=== PATIENT | female | born 1975 | race Caucasian/White ===

== ENCOUNTER 2017-03-05 21:04 | Emergency (ER) | payer BC ==
--- NOTE | 2017-03-05 21:14 | EDM.PDOC ---
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 She is 16 weeks , . Patient states that she did have some spotting early in , but things have been going well as of late. The spotting started again this morning, has worsened this evening and now she has passed several clots. Mild suprapubic pain, patient declines pain medication. Patient is Rh+. Bilateral Lower Back Pain Score (Numeric/FACES): 5 - Related Data Allergies Allergy/AdvReac Type Severity Reaction Status Date / Time No Known Allergies Allergy Verified 03/05/17 21:26 Home Meds: Home Meds . [No Known Home Meds] 03/05/17 [History] ED ROS GENERAL - Review of Systems Review Of Systems: See Below Constitutional: Reports: No Symptoms Respiratory: Reports: No Symptoms Cardiovascular: Reports: No Symptoms GI/Abdominal: Reports: Abdominal Pain : Reports: Other (vaginal bleeding). Denies: Discharge, Dysuria ED EXAM - Physical Exam Exam: See Below Exam Limited By: No Limitations General Appearance: Alert, WD/WN, No Apparent Distress Respiratory/Chest: No Respiratory Distress, Lungs Clear, Chest Non-Tender Cardiovascular: Regular Rate, Rhythm, No Murmur GI/Abdominal Exam: Normal Bowel Sounds, Soft (Female) Exam: Normal External Exam, Vaginal Bleeding (Small amount of blood in the vaginal vault. ) Heart Tones: Present Heart Tones per Min: 159 Neurological: Alert, Oriented Psychiatric: Normal Affect, Normal Mood Skin Exam: Warm, Dry, Intact Course - Vital Signs Last Recorded V/S: Last Vital Signs Temp 97.3 F 03/05/17 21:09 Pulse 83 03/05/17 21:09 Resp 16 03/05/17 21:09 BP 142/70 H 03/05/17 21:09 Pulse Ox 98 03/05/17 21:09 - Orders/Labs/Meds Orders: Active Orders 24 hr Category Date Time Status OB Ltd 1 or More Fetus [US] Stat Exams 03/05/17 21:27 Taken Labs: Laboratory Tests 03/05/17 03/05/17 Range/Units 21:47 21:47 WBC 11.81 H (3.98-10.04) K/mm3 RBC 4.24 (3.98-5.22) M/mm3 Hgb 12.6 (11.2-15.7) gm/L Hct 37.2 (34.1-44.9) % MCV 87.7 (79.4-94.8) fl MCH 29.7 (25.6-32.2) pg MCHC 33.9 (32.2-35.5) g/dl RDW Std Deviation 43.1 (36.4-46.3) fL Plt Count 300 (182-369) K/mm3 MPV 9.5 (9.4-12.3) fl Neutrophils % (Manual) 71 H (40-60) % Band Neutrophils % 0 (0-10) % Lymphocytes % (Manual) 21 (20-40) % Atypical Lymphs % 0 % Monocytes % (Manual) 7 (2-10) % Eosinophils % (Manual) 1 (0.7-5.8) % Basophils % (Manual) 0 L (0.1-1.2) Platelet Estimate Adequate RBC Morph Comment Normal HCG, Quant 77279.0 mIU/mL - Re-Assessments/Exams Free Text/Narrative Re-Assessment/Exam: Vaginal bleeding at 16wks gestation, very small amount of blood in the vaginal vault and cervix is closed. Patient Rh+. Will get US to evaluate further. Patient declines pain medication. 03/05/17 21:39 Hcg quant has come down some, patient is 16wks gestation. US demonatrates: 1. Single intrauterine gestation with normal motion in transverse position 2. Normal heart rate with 152 bpm 3. Marginal placenta previa 4. Small area of subchorionic hemorrhage 5. Estimated gestational age based on ultrasound 16 weeks 5 days. 6. Estimated date of delivery based on ultrasound 08/15/2017 With the subchorionic hemorrhage, recommend patient have bed rest and take it very easy the next few days. She has a follow-up scheduled with her OB on and needs to keep this. Advised patient that if pain should worsen or bleeding should become significant than she should return to the emergency room and patient verbalized understanding of this. 03/05/17 23:09 Departure - Departure Time of Disposition: 23:06 Disposition: Home, Self-Care 01 Condition: Fair Clinical Impression: Subchorionic hemorrhage in second trimester Qualifiers: Fetus number: single or unspecified fetus Qualified Code(s): O41.8X20 - Other specified disorders of amniotic fluid and membranes, second trimester, not applicable or unspecified; O46.8X2 - Other antepartum hemorrhage, second trimester; O46.8X2 - Other antepartum hemorrhage, second trimester - Discharge Information Referrals: Axel Holden MD [Primary Care Provider] - Forms: ED Department Discharge Additional Instructions: You were diagnosed with a small subchorionic hemorrhage. You will be discharged home, you need to rest. No lifting and take it very easy physically. Keep your appointment with Dr Holden . If your bleeding should worsen to more that 1 pad/hour for 2 hours or you have increased pain you may certainly return to ER as well. - My Orders Last 24 Hours: My Active Orders 03/05/17 21:27 OB Ltd 1 or More Fetus [US] Stat - Assessment/Plan Last 24 Hours: My Active Orders 03/05/17 21:27 OB Ltd 1 or More Fetus [US] Stat
--- NOTE | 2017-03-06 07:08 | US ---
Limited obstetrical ultrasound: Multiple real-time images were obtained. Comparison: Prior study of 01/01/17. Dates: LMP: LMP given as 11/17/16, DEVIN 08/24/17, gestational age 15 weeks 3 days Current ultrasound: DEVIN 08/15/17, gestational age 16 weeks 5 days Earliest ultrasound (01/01/17): DEVIN 08/19/17, gestational age 16 weeks 1 day presentation: Transverse Placenta: Posterior with partial placenta previa with minimal hypoechoic area seen beneath the inferior edge of the placenta suggesting minimal abruption. Amniotic fluid: TYLER 9.71 cm Measurements: BPD: 3.48 cm - 16 weeks 6 days Head circumference: 12.73 cm - 16 weeks 4 days Abdominal circumference: 11.38 cm - 17 weeks 2 days Femur length: 2.05 cm - 16 weeks 1 day Estimated weight: 164 g (0 lbs. 6 oz.), estimated weight at the 38th percentile for age by current ultrasound Heart rate: 152 bpm Cervical length: 4.8 cm Impression: 1. Single intrauterine fetus currently transverse lie. Dates as noted above. 2. Partial placenta previa with small abruption off the inferior edge of the placenta. 3. Normal heart activity is seen. Diagnostic code #3 Agree with preliminary report issued by [employer] ([employer] preliminary report dictated on 03/06/17, 12:01 AM Central Time)
== END 2017-03-05 23:20 | disposition home or self-care (01) ==
LOC: JD.ED 21:04
DX: O41.8X20 Other specified disorders of amniotic fluid and membranes, second trimester, not applicable or unspecified (principal); O46.8X2 Other antepartum hemorrhage, second trimester; Z3A.16 16 weeks gestation of pregnancy
CPT/HCPCS: 36415; 76815; 76815-26; 84702; 85025; 99284; 99284-25

== ENCOUNTER 2017-07-22 21:38 | Emergency (ER) | payer BC ==
--- NOTE | 2017-07-22 22:22 | EDM.PDOC ---
ED HPI GENERAL MEDICAL PROBLEM - General Chief Complaint: Head Injury Stated Complaint: HEAD INJURY/FALL Time Seen by Provider: 07/22/17 21:57 Source of Information: Reports: Patient History Limitations: Reports: No Limitations - History of Present Illness INITIAL COMMENTS - FREE TEXT/NARRATIVE: The patient is a 42-year-old female, 36 weeks , who presents with a fall and possible head injury. She states that she was walking down a flight of stairs and she's not certain why she fell. She did not pass out. says that she fell down about 3 stairs. She did hit her head. There is no loss of consciousness. She was evaluated by OB, baby seems fine, and was sent here for further evaluation. She states that she has a mild headache. No vision changes. No neck pain. No chest pain or shortness of breath. No abdominal pain. Denies extremity injury. States that her headache is not very bothersome. Hasn't taken anything for pain. No vomiting. No confusion. 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 , 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, - Past Surgical History HEENT Surgical History: Reports: Tonsillectomy Social & Family History - Family History Family Medical History: Noncontributory - Tobacco Use Smoking Status *Q: Never Smoker - Caffeine Use Caffeine Use: Reports: None - Recreational Drug Use Recreational Drug Use: No ED ROS GENERAL - Review of Systems Review Of Systems: See Below Constitutional: Denies: Fever HEENT: Reports: No Symptoms Respiratory: Denies: Shortness of Breath Cardiovascular: Denies: Chest Pain Endocrine: Reports: No Symptoms GI/Abdominal: Denies: Abdominal Pain : Reports: No Symptoms Musculoskeletal: Reports: No Symptoms Skin: Reports: No Symptoms Neurological: Reports: Headache Psychiatric: Reports: No Symptoms Hematologic/Lymphatic: Reports: No Symptoms Immunologic: Reports: No Symptoms ED EXAM, HEAD INJURY - Physical Exam Exam: See Below Exam Limited By: No Limitations General Appearance: Alert, WD/WN, No Apparent Distress Head: Atraumatic, Normocephalic Nexus Criteria: No: Posterior, Midline Cervical Tenderness, Evidence of Intoxication, Altered Level of Consciousness, Focal Neurological Deficit, Painful Distraction Injuries Eyes: Bilateral Eye: EOMI, Normal Inspection, PERRL Ears: Normal External Exam Nose: Normal Inspection, Normal Mucousa, No Blood Throat/Mouth: Normal Inspection, Normal Lips, Normal Teeth, Normal Gums, Normal Oropharynx, Normal Voice, No Airway Compromise Neck: Non-Tender, Full Range of Motion, Normal Alignment, Normal Inspection Respiratory: No Respiratory Distress, Lungs Clear, Normal Breath Sounds, No Accessory Muscle Use, Chest Non-Tender Cardiovascular: Normal Peripheral Pulses, Regular Rate, Rhythm GI/Abdominal Exam: Other (Gravid uterus, nontender) Back Exam: Normal Inspection. No: CVA Tenderness (L), CVA Tenderness (R), Vertebral Tenderness Extremities: Normal Inspection, Non-Tender Neurologic: fbi special agent II-XII nml As Tested, No Motor/Sensory Deficits, Alert, Normal Mood/Affect, Oriented x 3 Skin: Normal Color, Warm/Dry Course - Vital Signs Last Recorded V/S: Last Vital Signs Temp 37.2 C 07/22/17 21:51 Pulse 92 07/22/17 21:51 Resp 18 07/22/17 21:51 BP 124/61 07/22/17 21:51 Pulse Ox 98 07/22/17 21:51 - Re-Assessments/Exams Free Text/Narrative Re-Assessment/Exam: 07/23/17 01:07 Mild headache, no physical exam evidence of trauma, well-appearing with normal neuro exam, indication for imaging. Discussed return precautions. Departure - Departure Time of Disposition: 22:21 Disposition: Home, Self-Care 01 Clinical Impression: Musculoskeletal pain - Discharge Information Instructions: Musculoskeletal Pain Referrals: PCP,None [Primary Care Provider] - Forms: ED Department Discharge Additional Instructions: 1. Ice areas of pain 2. Take acetaminophen (tylenol) as needed for pain 3. Follow up with primary or return to ED for any new concerning symptoms
== END 2017-07-22 22:26 | disposition home or self-care (01) ==
LOC: JD.ED 21:38
DX: O99.89 Other specified diseases and conditions complicating pregnancy, childbirth and the puerperium (principal); R51 Headache; Z3A.36 36 weeks gestation of pregnancy
CPT/HCPCS: 99283

== ENCOUNTER 2017-08-06 09:55 | Inpatient (IN) | payer BC ==
--- NOTE | 2017-08-06 10:10 | PCM.LDHP ---
L&D History of Present Illness - General Date of Service: 08/06/17 Admit Problem/Dx: Admission Diagnosis/Problem Admission Diagnosis/Problem Source of Information: Patient History Limitations: Reports: No Limitations - History of Present Illness Introduction:: 42 Y/O (one ectopic and 3 spontaneous abortions) DEVIN 2017 EGA 38w1d presented to clinic with generalized pruritis starting last Sunday08/01/17. Ivolves feet and hands, suspected cholestasis of ( associated with increased risk of sudden unexplaned demise (BPP 8/8 today but BPP not reliable indicator of no proble in cholestasis). Has tried oatmeal bth, Benadryl, Calamine lotion. PLAN MEDICALLY INDICATED INDUCTION DUE TO POSSIBLE CHOLESTASIS-LABS WILL TAKE 8 DAYS TO RETURN). GBS negative Had been scheduled for Induction nex Sunday08/13/17 at 39 w1d EGA H/O fever blisters and has been taking Valacyclovir for prophylaxis. No H/O MRSA or travel to [facility] areans Had low-lying placenta earlier in but resolved by USG 07/30/17 A positive, Negative antibody screen on initial OB labs 01/11/17. H/H 13.5/40.6, [id number] platelets. Immune Rubella. Nonreactive RPR. Mixed chato on initial urine culture. HBsAg negative, HIV negative. USG 01/11/17 at 7w1d DEVIN 08/19/17 GC/CT negative. MSAFP negative 02/07/17, 46 XY 05/29/17 H/H 11.8/36.0 Plt [id number], OBGS 295 mg/dl 3Hr OGTT 90/168/143/54 WNL on 06/01/17 GBS negative 07/23/17 Plan delivery medically indicated induction due to generalized pruritis suspected cholestasis of associated with sudden IUFD Improves with: Reports: None Worsens with: Reports: None Associated Symptoms: Reports: N - Related Data Allergies/Adverse Reactions: Allergies Allergy/AdvReac Type Severity Reaction Status Date / Time No Known Allergies Allergy Verified 07/22/17 22:04 Home Medications: Home Meds Cholecalciferol (Vitamin D3) [Vitamin D] 50,000 unit PO WEEKLY 07/22/17 [History ] Pnv No.122/Iron/Folic Acid [ Multi Tablet] 1 each PO DAILY 07/22/17 [ History] valACYclovir HCl [Valtrex] 500 mg PO BID 07/22/17 [History] Past Medical History HEENT History: Reports: Impaired Vision Other HEENT History: Wears glasses 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: Reports: Ectopic , 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, - Past Surgical History HEENT Surgical History: Reports: Tonsillectomy Social & Family History - Family History Family Medical History: Noncontributory - Caffeine Use Caffeine Use: Reports: None H&P Review of Systems - Review of Systems: Review Of Systems: See Below General: Reports: Other (generalized sever pruritis total body including feet and hands soles and palms) HEENT: Reports: No Symptoms Pulmonary: Reports: No Symptoms Cardiovascular: Reports: No Symptoms Gastrointestinal: Reports: No Symptoms Genitourinary: Reports: No Symptoms Musculoskeletal: Reports: No Symptoms Skin: Reports: No Symptoms Psychiatric: Reports: No Symptoms Neurological: Reports: No Symptoms Hematologic/Lymphatic: Reports: No Symptoms Immunologic: Reports: No Symptoms L&D Exam - Exam Exam: See Below - OB Specific Movement: Active Heart Tones: Present Heart Tones per Min: 144 Heart Rate (FHR) Variability: Moderate (6-25 bmp) Presentation: Vertex - Jackson Score Jackson Score Cervix Position: Posterior Jackson Score Consistency: Soft Jcakson Score Effacement: 31-50% Jackson Score Dilation: 1-2 cm Jackson Score 's Station: -3 Jackson Score Total: 4 - Exam General: Alert, Oriented, Other (generalized rash over anterior chest, upper and lower extremities small petichial non raised with signs of excoriation all extremities) HEENT: Conjunctiva Clear, EACs Clear, Mucosa Moist & Big Arm, Other (no fever blisters), PERRLA Neck: Supple, Trachea Midline Lungs: Clear to Auscultation, Normal Respiratory Effort Cardiovascular: Regular Rate, Regular Rhythm GI/Abdominal Exam: Normal Bowel Sounds, Soft, Non-Tender Genitourinary: Normal external exam, Normal bimanual exam, Normal speculum exam Back Exam: Normal Inspection, Full Range of Motion Extremities: Normal Inspection, Normal Range of Motion, Non-Tender, No Pedal Edema, Normal Capillary Refill Skin: Warm, Dry, Intact Neurological: Reflexes Equal Bilateral Psychiatric: Alert, Normal Affect, Normal Mood - Problem List (1) 38 weeks gestation of SNOMED Code(s): 00181406 ICD Code: Z3A.38 - 38 WEEKS GESTATION OF Status: Acute Current Visit: No (2) AMA (advanced maternal age) multigravida 35+ SNOMED Code(s): 032195718 ICD Code: O09.529 - SUPERVISION OF ELDERLY MULTIGRAVIDA, UNSPECIFIED TRIMESTER Status: Acute Current Visit: No Qualifiers: Trimester: third trimester Qualified Code(s): O09.523 - Supervision of elderly multigravida, third trimester (3) Herpes labialis without complication SNOMED Code(s): 4515602 ICD Code: B00.1 - HERPESVIRAL VESICULAR DERMATITIS Status: Acute Current Visit: No (4) Generalized pruritus SNOMED Code(s): 558864234 ICD Code: L29.9 - PRURITUS, UNSPECIFIED Status: Acute Current Visit: No (5) Morbid (severe) obesity due to excess calories SNOMED Code(s): 132881590 ICD Code: E66.01 - MORBID (SEVERE) OBESITY DUE TO EXCESS CALORIES Status: Acute Current Visit: No Problem List Initiated/Reviewed/Updated: No Assessment/Plan Comment:: Plan: Labor induction and delivery
[2017-08-06] MEDS ORDERED: Ondansetron 4 MG/2 ML SDV IVPUSH PRN (10:23)
[2017-08-06] MEDS ORDERED: Nalbuphine 20 MG/ML 1 ML Syringe IVPUSH PRN (10:23)
[2017-08-06] MEDS ORDERED: Sodium Chloride 0.9% 10 ML Syringe FLUSH PRN (10:23)
[2017-08-06] MEDS ORDERED: hydrOXYzine HCl 25 MG/ML SDV IM PRN (10:27)
[2017-08-06] MEDS: Misoprostol 25 MCG (1/4 of 100 MCG) Tab VAG SCH ×2 (11:43→15:07)
[2017-08-06] MEDS ORDERED: Oxytocin/Lactated Ringers 10 UNIT/1,000 ML BAG IV SCH (14:45)
[2017-08-06] MEDS: Lactated Ringers 1,000 ML IV SCH ×3 (15:07→19:06)
[2017-08-06] MEDS ORDERED: diphenhydrAMINE 50 MG/ML SDV IVPUSH PRN (15:51)
[2017-08-06] MEDS ORDERED: fentaNYL 100 MCG/2 ML SDV EPIDUR PRN (15:51)
[2017-08-06] MEDS ORDERED: ePHEDrine 50 MG/ML SDV IVPUSH PRN (15:51)
[2017-08-06] MEDS ORDERED: Bupivacaine/fentaNYL/NS 100 ML Bag EPIDUR SCH (16:00)
--- NOTE | 2017-08-06 16:01 | PCM.SN ---
- Free Text/Narrative Note: 08/06/17 1500 Exam at 1430 by RN est 4 cm/50 %. Re-examined just now and cervix 1 cm/50 %. Pitocin induction after one Cytotec continues. Given Vistaril 50 mg IM and this has helped the itching.
--- NOTE | 2017-08-06 16:07 | PCM.PREANE ---
Preanesthetic Assessment - Anesthesia/Transfusion/Family Hx Anesthesia History: Prior Anesthesia Without Reaction Family History of Anesthesia Reaction: No Transfusion History: No Prior Transfusion(s) - Review of Systems General: No Symptoms Pulmonary: No Symptoms Cardiovascular: No Symptoms Gastrointestinal: Abdominal Pain (labor contractions) Neurological: No Symptoms Other: Reports: None - Physical Assessment Pulse: 96 O2 Sat by Pulse Oximetry: 97 Respiratory Rate: 18 Blood Pressure: 126/79 Vital Signs: Last Vital Signs Temp 37.1 C 08/06/17 10:23 Pulse 96 08/06/17 12:15 Resp 18 08/06/17 10:23 BP 126/79 08/06/17 12:15 Pulse Ox Height: 1.63 m Weight: 112.083 kg ASA Class: 2 Mental Status: Alert & Oriented x3 Airway Class: Mallampati = 2 Dentition: Reports: Normal Dentition Thyro-Mental Finger Breadths: 3 Mouth Opening Finger Breadths: 2 ROM/Head Extension: Full Lungs: Clear to Auscultation, Normal Respiratory Effort Cardiovascular: Regular Rate, Regular Rhythm - Lab Values: Laboratory Last Values WBC 10.55 K/mm3 (3.98-10.04) H 08/06/17 10:50 RBC 4.35 M/mm3 (3.98-5.22) 08/06/17 10:50 Hgb 12.4 gm/L (11.2-15.7) 08/06/17 10:50 Hct 37.5 % (34.1-44.9) 08/06/17 10:50 MCV 86.2 fl (79.4-94.8) 08/06/17 10:50 MCH 28.5 pg (25.6-32.2) 08/06/17 10:50 MCHC 33.1 g/dl (32.2-35.5) 08/06/17 10:50 RDW Std Deviation 46.8 fL (36.4-46.3) H 08/06/17 10:50 Plt Count 268 K/mm3 (182-369) 08/06/17 10:50 MPV 10.1 fl (9.4-12.3) 08/06/17 10:50 Neut % (Auto) 73.0 % (34.0-71.1) H 08/06/17 10:50 Lymph % (Auto) 14.9 % (19.3-51.7) L 08/06/17 10:50 [place] % (Auto) 9.2 % (4.7-12.5) 08/06/17 10:50 Eos % (Auto) 2.2 (0.7-5.8) 08/06/17 10:50 Baso % (Auto) 0.2 % (0.1-1.2) 08/06/17 10:50 Neut # (Auto) 7.71 K/mm3 (1.56-6.13) H 08/06/17 10:50 Lymph # (Auto) 1.57 K/mm3 (1.18-3.74) 08/06/17 10:50 [place] # (Auto) 0.97 K/mm3 (0.24-0.36) H 08/06/17 10:50 Eos # (Auto) 0.23 K/mm3 (0.04-0.36) 08/06/17 10:50 Baso # (Auto) 0.02 K/mm3 (0.01-0.08) 08/06/17 10:50 Sodium 137 mEq/L (136-145) 08/06/17 10:50 Potassium 3.8 mEq/L (3.5-5.1) 08/06/17 10:50 Chloride 105 mEq/L (98-107) 08/06/17 10:50 Carbon Dioxide 20 mEq/L (21-32) L 08/06/17 10:50 Anion Gap 15.8 (5-15) H 08/06/17 10:50 BUN 7 mg/dL (7-18) 08/06/17 10:50 Creatinine 0.5 mg/dL (0.55-1.02) L 08/06/17 10:50 Est Cr Clr Drug Dosing TNP 08/06/17 10:50 Estimated GFR (MDRD) > 60 mL/min (>60) 08/06/17 10:50 BUN/Creatinine Ratio 14.0 (14-18) 08/06/17 10:50 Glucose 80 mg/dL (74-106) 08/06/17 10:50 Calcium 8.6 mg/dL (8.5-10.1) 08/06/17 10:50 Total Bilirubin 0.4 mg/dL (0.2-1.0) 08/06/17 10:50 AST 30 U/L (15-37) 08/06/17 10:50 ALT 18 U/L (14-59) 08/06/17 10:50 Alkaline Phosphatase 96 U/L (46-116) 08/06/17 10:50 Total Protein 6.5 g/dl (6.4-8.2) 08/06/17 10:50 Albumin 2.6 g/dl (3.4-5.0) L 08/06/17 10:50 Globulin 3.9 gm/dL 08/06/17 10:50 Albumin/Globulin Ratio 0.7 (1-2) L 08/06/17 10:50 - Allergies Allergies/Adverse Reactions: Allergies Allergy/AdvReac Type Severity Reaction Status Date / Time No Known Allergies Allergy Verified 07/22/17 22:04 - Blood Blood Available: No Product(s) Available: None - Anesthesia Plan Pre-Op Medication Ordered: None - Acknowledgements Anesthesia Type Planned: Epidural Pt an Appropriate Candidate for the Planned Anesthesia: Yes Alternatives and Risks of Anesthesia Discussed w Pt/Guardian: Yes Pt/Guardian Understands and Agrees with Anesthesia Plan: Yes PreAnesthesia Questionnaire HEENT History: Reports: Impaired Vision Other HEENT History: Wears glasses Gastrointestinal History: Reports: GERD 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 , 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, - Past Surgical History HEENT Surgical History: Reports: Tonsillectomy - SUBSTANCE USE Smoking Status *Q: Never Smoker Tobacco Use Within Last Twelve Months: No Second Hand Smoke Exposure: No Recreational Drug Use History: No - HOME MEDS Home Medications: Home Meds Cholecalciferol (Vitamin D3) [Vitamin D] 50,000 unit PO WEEKLY 07/22/17 [History ] Pnv No.122/Iron/Folic Acid [ Multi Tablet] 1 each PO DAILY 07/22/17 [ History] valACYclovir HCl [Valtrex] 500 mg PO BID 07/22/17 [History] - CURRENT (IN HOUSE) MEDS Current Meds: Current Medications Diphenhydramine HCl (Benadryl) 25 mg IVPUSH Q6H PRN PRN Reason: Itching Ephedrine Sulfate (Ephedrine Sulfate) 5 mg IVPUSH ASDIRECTED PRN PRN Reason: HYPOTENTSION Fentanyl (Sublimaze) 100 mcg EPIDUR Q3H PRN PRN Reason: Pain Fentanyl/Bupivacaine HCl (Fentanyl/Bupivacaine/Ns 2 Mcg-0.125% 100 Ml) 100 ml EPIDUR ASDIRECTED DEB Hydroxyzine HCl (Vistaril) 50 mg IM Q6H PRN PRN Reason: Itching Last Admin: 08/06/17 11:29 Dose: 50 mg Lactated Ringer's (Ringers, Lactated) 1,000 mls @ 100 mls/hr IV ASDIRECTED [facility] Last Admin: 08/06/17 15:07 Dose: 100 mls/hr Oxytocin/Lactated Ringer's (Pitocin In Lr 10 Units/1,000 Ml) 10 unit in 1,000 mls @ 12 mls/hr IV TITRATE DEB; Protocol Last Titration: 08/06/17 15:34 Dose: 4 munits/min, 24 mls/hr Misoprostol (Cytotec) 25 mcg VAG Q3HR DEB Last Admin: 08/06/17 15:07 Dose: Not Given Nalbuphine HCl (Nubain) 10 mg IVPUSH Q2H PRN PRN Reason: Pain (moderate 4-6) Ondansetron HCl (Zofran) 4 mg IVPUSH Q4H PRN PRN Reason: Nausea/Vomiting Sodium Chloride (Saline Flush) 10 ml FLUSH ASDIRECTED PRN PRN Reason: Keep Vein Open
--- NOTE | 2017-08-06 19:39 | PCM.SN ---
- Free Text/Narrative Note: Cervix /posterior/soft/-1 cat I FHR, light meconium stained amnioic fluid. Amniotomy at 19308/06/17
--- NOTE | 2017-08-06 20:12 | PCM.SN ---
- Free Text/Narrative Note: 08/06/171952 Shortly after rupture of membranes long deceleration turned off pitocin, changed positions and heart rate returned to normal. Cervix 7 cm dilated and 80 % effaced, mid-position and soft, vertex at -1 station, no prolapsed cord palpated on vaginal exam.
[2017-08-06] MEDS ORDERED: Bupivacaine 0.25% 10 ML SDV ONE (22:00)
--- NOTE | 2017-08-06 22:29 | PCM.DEL ---
L & D Note - General Info Date of Service: 08/06/17 - Delivery Note Labor: Spontaneous, Augmented by ARM, Augmented by Oxytocin Cervical Ripening Method: Misoprostil (25 mcg x1 intravaginal) Delivery Outcome: Livebirth (Male liveborn Sunday08/06/17 at 2207 hrs. 30/6/80 grams 8 pounds 1.8 ounces male Apgars 8/9 Dr. Henriquez mains and service supervisor at delivery because of meconium-stained amnionic fluid. GARY. True knot in the umbilical cord.) Delivery Method: Spontaneous Vaginal Delivery-Single Infant Delivery Mode: Spontaneous Presentation: Left Occiput Anterior (GARY) Nuchal Cord: None (True knot in the umbilical cord) Prep: Povidone-Iodine (Betadine Anesthesia Type: None Episiotomy Type: None Laceration: None Placenta: Intact, Spontaneous (08/06/17Sunday at 2212 hrs. examined and intact, central cord insertion, Mcmahan discarded), Meconium Stained Cord: 3 Vessels Estimated Blood Loss: 750 Resuscitation Needed: No : Suctioned, Bulb Syringe, Stimulated, Warmed, [place] Used, Warmer Used Provider: Axel Holden Score 1 min: 8 Score 5 min: 9 - General Info Date of Service: 08/06/17 Functional Status: Reports: Pain Controlled - Review of Systems General: Reports: No Symptoms HEENT: Reports: No Symptoms Pulmonary: Reports: No Symptoms Cardiovascular: Reports: No Symptoms Gastrointestinal: Reports: No Symptoms Genitourinary: Reports: No Symptoms Musculoskeletal: Reports: No Symptoms Skin: Reports: No Symptoms Neurological: Reports: No Symptoms Psychiatric: Reports: No Symptoms - Patient Data Vitals - Most Recent: Last Vital Signs Temp 98.8 F 08/06/17 10:23 Pulse 96 08/06/17 16:07 Resp 18 08/06/17 16:07 BP 126/79 08/06/17 16:07 Pulse Ox 97 08/06/17 16:07 Weight - Most Recent: 247 lb 1.6 oz Lab Results Last 24 Hours: Laboratory Results - last 24 hr 08/06/17 08/06/17 Range/Units 10:50 10:50 WBC 10.55 H (3.98-10.04) K/mm3 RBC 4.35 (3.98-5.22) M/mm3 Hgb 12.4 (11.2-15.7) gm/L Hct 37.5 (34.1-44.9) % MCV 86.2 (79.4-94.8) fl MCH 28.5 (25.6-32.2) pg MCHC 33.1 (32.2-35.5) g/dl RDW Std Deviation 46.8 H (36.4-46.3) fL Plt Count 268 (182-369) K/mm3 MPV 10.1 (9.4-12.3) fl Neut % (Auto) 73.0 H (34.0-71.1) % Lymph % (Auto) 14.9 L (19.3-51.7) % George % (Auto) 9.2 (4.7-12.5) % Eos % (Auto) 2.2 (0.7-5.8) Baso % (Auto) 0.2 (0.1-1.2) % Neut # (Auto) 7.71 H (1.56-6.13) K/mm3 Lymph # (Auto) 1.57 (1.18-3.74) K/mm3 George # (Auto) 0.97 H (0.24-0.36) K/mm3 Eos # (Auto) 0.23 (0.04-0.36) K/mm3 Baso # (Auto) 0.02 (0.01-0.08) K/mm3 Sodium 137 (136-145) mEq/L Potassium 3.8 (3.5-5.1) mEq/L Chloride 105 (98-107) mEq/L Carbon Dioxide 20 L (21-32) mEq/L Anion Gap 15.8 H (5-15) BUN 7 (7-18) mg/dL Creatinine 0.5 L (0.55-1.02) mg/dL Est Cr Clr Drug Dosing TNP Estimated GFR (MDRD) > 60 (>60) mL/min BUN/Creatinine Ratio 14.0 (14-18) Glucose 80 (74-106) mg/dL Calcium 8.6 (8.5-10.1) mg/dL Total Bilirubin 0.4 (0.2-1.0) mg/dL AST 30 (15-37) U/L ALT 18 (14-59) U/L Alkaline Phosphatase 96 (46-116) U/L Total Protein 6.5 (6.4-8.2) g/dl Albumin 2.6 L (3.4-5.0) g/dl Globulin 3.9 gm/dL Albumin/Globulin Ratio 0.7 L (1-2) Med Orders - Current: Current Medications Diphenhydramine HCl (Benadryl) 25 mg IVPUSH Q6H PRN PRN Reason: Itching Ephedrine Sulfate (Ephedrine Sulfate) 5 mg IVPUSH ASDIRECTED PRN PRN Reason: HYPOTENTSION Last Admin: 08/06/17 19:00 Dose: 5 mg Fentanyl (Sublimaze) 100 mcg EPIDUR Q3H PRN PRN Reason: Pain Last Admin: 08/06/17 18:15 Dose: 100 mcg Fentanyl/Bupivacaine HCl (Fentanyl/Bupivacaine/Ns 2 Mcg-0.125% 100 Ml) 100 ml EPIDUR ASDIRECTED DEB Last Admin: 08/06/17 18:16 Dose: 100 ml Hydroxyzine HCl (Vistaril) 50 mg IM Q6H PRN PRN Reason: Itching Last Admin: 08/06/17 11:29 Dose: 50 mg Lactated Ringer's (Ringers, Lactated) 1,000 mls @ 100 mls/hr IV ASDIRECTED DEB Last Admin: 08/06/17 19:06 Dose: 100 mls/hr Oxytocin/Lactated Ringer's (Pitocin In Lr 10 Units/1,000 Ml) 10 unit in 1,000 mls @ 12 mls/hr IV TITRATE DEB; Protocol Last Titration: 08/06/17 18:50 Dose: 7 munits/min, 42 mls/hr Misoprostol (Cytotec) 25 mcg VAG Q3HR DEB Last Admin: 08/06/17 15:07 Dose: Not Given Nalbuphine HCl (Nubain) 10 mg IVPUSH Q2H PRN PRN Reason: Pain (moderate 4-6) Ondansetron HCl (Zofran) 4 mg IVPUSH Q4H PRN PRN Reason: Nausea/Vomiting Sodium Chloride (Saline Flush) 10 ml FLUSH ASDIRECTED PRN PRN Reason: Keep Vein Open - Exam (Female) Exam: Normal External Exam - Problem List & Annotations (1) 38 weeks gestation of SNOMED Code(s): 61547170 Code(s): Z3A.38 - 38 WEEKS GESTATION OF Status: Acute Current Visit: No (2) AMA (advanced maternal age) multigravida 35+ SNOMED Code(s): 592455564 Code(s): O09.529 - SUPERVISION OF ELDERLY MULTIGRAVIDA, UNSPECIFIED TRIMESTER Status: Acute Current Visit: No Qualifiers: Trimester: third trimester Qualified Code(s): O09.523 - Supervision of elderly multigravida, third trimester (3) Herpes labialis without complication SNOMED Code(s): 5860578 Code(s): B00.1 - HERPESVIRAL VESICULAR DERMATITIS Status: Acute Current Visit: No (4) Generalized pruritus SNOMED Code(s): 208420991 Code(s): L29.9 - PRURITUS, UNSPECIFIED Status: Acute Current Visit: No (5) Morbid (severe) obesity due to excess calories SNOMED Code(s): 506191015 Code(s): E66.01 - MORBID (SEVERE) OBESITY DUE TO EXCESS CALORIES Status: Acute Current Visit: No (6) Meconium in amniotic fluid affecting management of mother, delivered SNOMED Code(s): 21941844, 100624785, 406252281 Code(s): O77.0 - LABOR AND DELIVERY COMPLICATED BY MECONIUM IN AMNIOTIC FLUID Status: Acute Current Visit: Yes (7) True knot of umbilical cord, delivered SNOMED Code(s): 28914765 Code(s): O69.2XX0 - LABOR AND DEL COMP BY OTH CORD ENTANGLE, W COMPRSN, UNSP Status: Acute Current Visit: Yes - Problem List Review Problem List Initiated/Reviewed/Updated: No - My Orders Last 24 Hours: My Active Orders 08/06/17 10:23 Patient Status [ADT] Routine Activity as Tolerated [RC] PFP Communication Order [RC] ASDIRECTED Notify Provider [RC] PFP Notify Provider [RC] PRN Urinary Catheter Assessment [RC] ASDIRECTED Vital Signs [RC] PER UNIT ROUTINE Nalbuphine [Nubain] 10 mg IVPUSH Q2H PRN Ondansetron [Zofran] 4 mg IVPUSH Q4H PRN Sodium Chloride 0.9% [Saline Flush] 10 ml FLUSH ASDIRECTED PRN Electronic Heart Tones Ext w TOCO [WOMSER] Routine Electronic Heart Tones Internal [WOMSER] Per Unit Routine Peripheral IV Insertion Adult [OM.PC] Routine Resuscitation Status Routine 08/06/17 10:24 Heart Tones [RC] ASDIRECTED Peripheral IV Care [RC] . DIRECTED 08/06/17 10:25 Pump Management, Intrathecal [RC] ASDIRECTED 08/06/17 10:27 hydrOXYzine HCl [Vistaril] 50 mg IM Q6H PRN 08/06/17 10:30 Lactated Ringers [Ringers, Lactated] 1,000 ml IV ASDIRECTED 08/06/17 12:00 Misoprostol [Cytotec] 25 mcg VAG Q3HR 08/06/17 12:56 MISC TEST Stat 08/06/17 14:45 Oxytocin/Lactated Ringers [Pitocin in LR 10 Units/1,000 ML] 10 unit in 1,000 ml IV TITRATE 08/06/17 19:13 SCD [Sequential Compression Device] [OM.PC] Routine 08/06/17 Lunch Regular Diet [DIET] - Plan Plan:: Plan: Labor induction and delivery
[2017-08-06] MEDS ORDERED: Misoprostol 200 MCG Tab ONE (22:41)
[2017-08-06] MEDS ORDERED: Simethicone 80 MG Tab.Chew PO PRN (22:52)
[2017-08-06] MEDS ORDERED: Benzocaine/Menthol 20%-0.5% Spray 56 GM Canister TOP PRN (22:52)
[2017-08-06] MEDS ORDERED: Lanolin 100% Cream 7 GM Tube TOP PRN (22:52)
[2017-08-06] MEDS ORDERED: Acetaminophen 325 MG Tab PO PRN (22:52)
[2017-08-06] MEDS ORDERED: Witch Hazel Medicated Pads 100/Jar TOP PRN (22:52)
[2017-08-06] MEDS ORDERED: Misoprostol 200 MCG Tab PO PRN (22:52)
[2017-08-06] MEDS ORDERED: Docusate Sodium 100 MG Cap PO PRN (22:52)
[2017-08-06] MEDS ORDERED: Acetaminophen/oxyCODONE 325-5 MG Tab PO PRN (22:52)
[2017-08-06] MEDS ORDERED: Oxytocin/Lactated Ringers 20 UNIT/1,000 ML BAG IV ONE (23:44)
[2017-08-07] MEDS: Ibuprofen 600 MG Tab PO PRN ×3 (07:42→18:15)
--- NOTE | 2017-08-07 08:16 | PCM48HPAN ---
Post Anesthesia Note - EVALUATION WITHIN 48HRS OF ANESTHETIC Vital Signs in Normal Range: Yes Patient Participated in Evaluation: Yes Respiratory Function Stable: Yes Airway Patent: Yes Cardiovascular Function Stable: Yes Hydration Status Stable: Yes Pain Control Satisfactory: Yes Nausea and Vomiting Control Satisfactory: Yes Mental Status Recovered: Yes Pulse Rate: 74 Resp Rate: 18 Temperature: 98.6 F Blood Pressure: 138/78
[2017-08-07] MEDS ORDERED: Prenatal Multivitamin with Calcium/Folic Acid/Iron Tab PO SCH (09:00)
[2017-08-07] MEDS: valACYclovir 500 MG Tab PO SCH ×3 (10:16→21:27)
[2017-08-07] MEDS: Misoprostol 25 MCG (1/4 of 100 MCG) Tab VAG SCH (10:23)
--- NOTE | 2017-08-07 13:28 | PCM.SN ---
- Free Text/Narrative Note: exam 08/07/17 1327 Afebrile, chest clear, uterus at umbilicus -1. No heavy vaginal bleeding. No leg cramping. Dr. Bradford will see patient tomorrow and dismiss. Patient will see me in 2 weeks in the clinic.
[2017-08-08] MEDS: Ibuprofen 600 MG Tab PO PRN (03:22)
--- NOTE | 2017-08-08 07:09 | PCM.DCSUM1 ---
Discharge Summary - Hospital Course Diagnosis: Stroke: No - Discharge Data Discharge Date: 08/08/17 Discharge Disposition: Home, Self-Care 01 Condition: Good - Patient Summary/Data Hospital Course: Admitted for induction, progressed to delivery without complications. - Patient Instructions Diet: Usual Diet as Tolerated Activity: No Strenuous Activities Driving: May Drive Today Notify Provider of: Fever, Increased Pain, Swelling and Redness, Drainage, Nausea and/or Vomiting - Discharge Plan Home Medications: Home Meds Cholecalciferol (Vitamin D3) [Vitamin D] 50,000 unit PO WEEKLY 07/22/17 [History ] Pnv No.122/Iron/Folic Acid [ Multi Tablet] 1 each PO DAILY 07/22/17 [ History] valACYclovir HCl [Valtrex] 500 mg PO BID 07/22/17 [History] Referrals: Axel Holden MD [Primary Care Provider] - (2 weeks) - Discharge Summary/Plan Comment DC Time >30 min.: No - General Info Date of Service: 08/08/17 Functional Status: Reports: Pain Controlled - Review of Systems General: Reports: No Symptoms HEENT: Reports: No Symptoms Pulmonary: Reports: No Symptoms Cardiovascular: Reports: No Symptoms Gastrointestinal: Reports: No Symptoms Genitourinary: Reports: No Symptoms Musculoskeletal: Reports: No Symptoms Skin: Reports: No Symptoms Neurological: Reports: No Symptoms Psychiatric: Reports: No Symptoms - Patient Data Vitals - Most Recent: Last Vital Signs Temp 36.6 C 08/08/17 03:19 Pulse 73 08/08/17 03:19 Resp 18 08/08/17 03:19 BP 129/62 08/08/17 03:19 Pulse Ox 97 08/08/17 03:19 Weight - Most Recent: 112.083 kg Lab Results - Last 24 hrs: Laboratory Results - last 24 hr 08/07/17 Range/Units 06:35 Manual Slide Review Abnormal smear Med Orders - Current: Current Medications Acetaminophen (Tylenol) 650 mg PO Q4H PRN PRN Reason: mild pain or fever Benzocaine/Menthol (Dermoplast Pain Relief [place]) 0 gm TOP ASDIRECTED PRN PRN Reason: Perineal Comfort Measure Last Admin: 08/07/17 09:23 Dose: 1 can Docusate Sodium (Colace) 100 mg PO BID PRN PRN Reason: Constipation Emollient Ointment (Lansinoh Hpa) 0 gm TOP ASDIRECTED PRN PRN Reason: Sore Nipples Ibuprofen (Motrin) 600 mg PO Q4H PRN PRN Reason: Mild pain or fever Last Admin: 08/08/17 03:22 Dose: 600 mg Misoprostol (Cytotec) 400 mcg PO ONETIME PRN PRN Reason: excessive vaginal bleeding Last Admin: 08/06/17 22:45 Dose: 400 mcg Oxycodone/Acetaminophen (Percocet 325-5 Mg) 2 tab PO Q4H PRN PRN Reason: Pain (moderate 4-6) Prenat Multivit/Target Man/Iron/Folic Ac ( Plus Iron) 1 each PO DAILY [facility] Last Admin: 08/07/17 09:23 Dose: 1 each Simethicone (Simethicone) 80 mg PO Q4H PRN PRN Reason: Gas Valacyclovir HCl (Valtrex) 500 mg PO BID [facility] Last Admin: 08/07/17 21:27 Dose: 500 mg Witch Ivania (Tucks) 1 pad TOP ASDIRECTED PRN PRN Reason: Hemorrhoid pain Last Admin: 08/07/17 09:24 Dose: 1 box Discontinued Medications Bupivacaine HCl (Sensorcaine-Mpf 0.25%) 10 ml .ROUTE .K-MED ONE Stop: 08/06/17 22:01 Diphenhydramine HCl (Benadryl) 25 mg IVPUSH Q6H PRN PRN Reason: Itching Ephedrine Sulfate (Ephedrine Sulfate) 5 mg IVPUSH ASDIRECTED PRN PRN Reason: HYPOTENTSION Last Admin: 08/06/17 19:00 Dose: 5 mg Fentanyl (Sublimaze) 100 mcg EPIDUR Q3H PRN PRN Reason: Pain Last Admin: 08/06/17 18:15 Dose: 100 mcg Fentanyl/Bupivacaine HCl (Fentanyl/Bupivacaine/Ns 2 Mcg-0.125% 100 Ml) 100 ml EPIDUR ASDIRECTED [facility] Last Admin: 08/06/17 18:16 Dose: 100 ml Hydroxyzine HCl (Vistaril) 50 mg IM Q6H PRN PRN Reason: Itching Last Admin: 08/06/17 11:29 Dose: 50 mg Lactated Ringer's (Ringers, Lactated) 1,000 mls @ 100 mls/hr IV ASDIRECTED [facility] Last Admin: 08/06/17 19:06 Dose: 100 mls/hr Oxytocin/Lactated Ringer's (Pitocin In Lr 10 Units/1,000 Ml) 10 unit in 1,000 mls @ 12 mls/hr IV TITRATE DEB; Protocol Last Titration: 08/06/17 18:50 Dose: 7 munits/min, 42 mls/hr Oxytocin/Lactated Ringer's (Pitocin In Lr 20 Units/1,000 Ml) Confirm Administered Dose 20 unit in 1,000 mls @ as directed IV .STK-MED ONE Stop: 08/06/17 23:45 Last Admin: 08/07/17 10:17 Dose: Not Given Misoprostol (Cytotec) 25 mcg VAG Q3HR DEB Last Admin: 08/07/17 10:23 Dose: Not Given Misoprostol (Cytotec) Confirm Administered Dose 400 mcg .ROUTE .STK-MED ONE Stop: 08/06/17 22:42 Last Admin: 08/07/17 10:16 Dose: Not Given Nalbuphine HCl (Nubain) 10 mg IVPUSH Q2H PRN PRN Reason: Pain (moderate 4-6) Ondansetron HCl (Zofran) 4 mg IVPUSH Q4H PRN PRN Reason: Nausea/Vomiting Sodium Chloride (Saline Flush) 10 ml FLUSH ASDIRECTED PRN PRN Reason: Keep Vein Open - Exam General: Reports: Alert, Oriented HEENT: Reports: Pupils Equal, Pupils Reactive, EOMI, Mucous Membr. Moist/[place] Neck: Reports: Supple Lungs: Reports: Clear to Auscultation, Normal Respiratory Effort Cardiovascular: Reports: Regular Rate, Regular Rhythm GI/Abdominal Exam: Normal Bowel Sounds, Soft, Non-Tender, No Organomegaly, No Distention, No Abnormal Bruit, No Mass, Pelvis Stable Back Exam: Reports: Normal Inspection, Full Range of Motion Extremities: Normal Inspection, Normal Range of Motion, Non-Tender, No Pedal Edema, Normal Capillary Refill Skin: Reports: Warm, Dry, Intact Wound/Incisions: Reports: Healing Well Neurological: Reports: No New Focal Deficit Psy/Mental Status: Reports: Alert, Normal Affect, Normal Mood
== END 2017-08-08 09:30 | disposition home or self-care (01) | DRG 560 ==
LOC: JD.OB 09:55 → OBSVTOIN 22:29 → JD.OB 22:46
PROVIDERS: ADMIT Obstetrics & Gynecology; ATTEND Obstetrics & Gynecology
PROC: 10E0XZZ Delivery of Products of Conception, External Approach (ICD-10-PCS; principal; 2017-08-06)
PROC: 10907ZC Drainage of Amniotic Fluid, Therapeutic from Products of Conception, Via Natural or Artificial Opening (ICD-10-PCS; 2017-08-06)
PROC: 3E0P7VZ Introduction of Hormone into Female Reproductive, Via Natural or Artificial Opening (ICD-10-PCS; 2017-08-06)
PROC: 3E033VJ Introduction of Other Hormone into Peripheral Vein, Percutaneous Approach (ICD-10-PCS; 2017-08-06)
DX: O26.62 Liver and biliary tract disorders in childbirth (principal); K83.1 Obstruction of bile duct; O99.214 Obesity complicating childbirth; E66.01 Morbid (severe) obesity due to excess calories; O98.32 Other infections with a predominantly sexual mode of transmission complicating childbirth; A60.00 Herpesviral infection of urogenital system, unspecified; O77.0 Labor and delivery complicated by meconium in amniotic fluid; O69.2XX0 Labor and delivery complicated by other cord entanglement, with compression, not applicable or unspecified; Z3A.38 38 weeks gestation of pregnancy; Z37.0 Single live birth
CPT/HCPCS: 36415; 51702; 59025; 59409; 80053; 85025; 86592; A9270-GY; J2590; J3010; J3410; J7120

== ENCOUNTER 2017-08-13 14:33 | Emergency (ER) | payer BC ==
--- NOTE | 2017-08-13 15:22 | EDM.PDOC ---
ED HPI GENERAL MEDICAL PROBLEM - General Chief Complaint: Respiratory Problem Stated Complaint: HEART ISSUES SENT BY DR FOY Time Seen by Provider: 08/13/17 15:22 Source of Information: Reports: Patient History Limitations: Reports: No Limitations - History of Present Illness INITIAL COMMENTS - FREE TEXT/NARRATIVE: Karmen is a 42yo, female, presents ambulatory to ED with , 4yo son and son for concerns of lower extremity swelling, sensation of chest heaviness, palpitations,SOB x 2-3days which seems to be worsening. She is 7 days from vaginal delivery. She had follow up visit with Dr. Foy today. Dr. Foy called ED and visited with this provider to update that she would be coming to ED for further evaluation of above noted symptoms. Patient also notes mild pain/discomfort to her left shoulder which may worsen with inspiration. She is not coughing/blood in sputum. No hx of DVT/PE. She has family hx of CAD/AMI and CVA. She has not had coagulopathy workup with any of her miscarriages. She is . She and infant are doing well otherwise. She does have vaginal bleeding s/p vaginal delivery. She had 2 day hospital stay . 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 Denies: Fever, Chills, Decreased Appetite HEENT: Reports: No Symptoms Respiratory: Reports: Shortness of Breath, Pleuritic Chest Pain (left sided). Denies: Wheezing, Cough, Sputum, Hemoptysis Cardiovascular: Reports: Chest Pain, Dyspnea on Exertion (worse over the past 2 days), Edema (mild; worse to right leg than left, states swelling is worse than when she was ), Palpitations. Denies: Lightheadedness GI/Abdominal: Reports: No Symptoms. Denies: Constipation, Diarrhea, Nausea : Reports: No Symptoms, Other (vaginal bleeding s/p vaginal delivery which she feels is normal lochia) Neurological: Denies: Confusion, Headache, Numbness, Tingling Psychiatric: Reports: Anxiety (mild, tearful at times) ED EXAM, GENERAL - Physical Exam Exam: See Below Exam Limited By: No Limitations General Appearance: Alert, WD/WN, No Apparent Distress Eye Exam: Bilateral Eye: EOMI, PERRL Ears: Normal External Exam, Hearing Grossly Normal Nose: Normal Inspection Throat/Mouth: Normal Inspection, Normal Lips, Normal Voice, No Airway Compromise Head: Atraumatic, Normocephalic Neck: Normal Inspection, Supple Respiratory/Chest: No Respiratory Distress, Lungs Clear, Normal Breath Sounds Cardiovascular: Regular Rate, Rhythm, No Murmur Peripheral Pulses: 2+: Radial (L), Radial (R), Posterior Tibial (L), Posterior Tibial (R), Dorsalis Pedis (L), Dorsalis Pedis (R) GI/Abdominal: Normal Bowel Sounds, Soft, Non-Tender (Female) Exam: Deferred Rectal (Female) Exam: Deferred Back Exam: Normal Inspection Extremities: Pedal Edema (trace bilaterally with 1+ to right ankle. Pain with palpation to calf of right side but negative brannon's sign. Pain to bilateral medial thighs with palpation however no palpable cords noted. CMS bilat is + and =), Leg Pain. No: Brannon's Sign Neurological: Alert, Oriented, CN II-XII Intact, Normal Cognition Psychiatric: Normal Affect, Normal Mood, Anxious (tearful at times) Skin Exam: Warm, Dry, Intact EKG INTERPRETATION EKG Date: 08/13/17 Rhythm: Other (sinus bradycardia; no ischemic changes, no LAD, LVH or IVCD, QT WNL. Reviewed with Dr. Chilel.) Course - Vital Signs Last Recorded V/S: Last Vital Signs Temp 98.1 F 08/13/17 14:50 Pulse 53 L 08/13/17 14:50 Resp 18 08/13/17 14:50 BP 143/89 H 08/13/17 14:50 Pulse Ox 97 08/13/17 14:50 - Orders/Labs/Meds Orders: Active Orders 24 hr Category Date Time Status EKG Documentation Completion [RC] STAT Care 08/13/17 15:37 Active Labs: Laboratory Tests 08/13/17 08/13/17 Range/Units 15:45 15:45 WBC 9.80 (3.98-10.04) K/mm3 RBC 4.44 (3.98-5.22) M/mm3 Hgb 12.5 (11.2-15.7) gm/L Hct 38.9 (34.1-44.9) % MCV 87.6 (79.4-94.8) fl MCH 28.2 (25.6-32.2) pg MCHC 32.1 L (32.2-35.5) g/dl RDW Std Deviation 46.7 H (36.4-46.3) fL Plt Count 348 (182-369) K/mm3 MPV 9.5 (9.4-12.3) fl Neut % (Auto) 70.6 (34.0-71.1) % Lymph % (Auto) 19.2 L (19.3-51.7) % Rock % (Auto) 6.8 (4.7-12.5) % Eos % (Auto) 2.6 (0.7-5.8) Baso % (Auto) 0.3 (0.1-1.2) % Neut # (Auto) 6.92 H (1.56-6.13) K/mm3 Lymph # (Auto) 1.88 (1.18-3.74) K/mm3 [place] # (Auto) 0.67 H (0.24-0.36) K/mm3 Eos # (Auto) 0.25 (0.04-0.36) K/mm3 Baso # (Auto) 0.03 (0.01-0.08) K/mm3 Sodium 142 (136-145) mEq/L Potassium 3.9 (3.5-5.1) mEq/L Chloride 107 (98-107) mEq/L Carbon Dioxide 24 (21-32) mEq/L Anion Gap 14.9 (5-15) BUN 9 (7-18) mg/dL Creatinine 0.6 (0.55-1.02) mg/dL Est Cr Clr Drug Dosing 107.63 mL/min Estimated GFR (MDRD) > 60 (>60) mL/min BUN/Creatinine Ratio 15.0 (14-18) Glucose 87 (74-106) mg/dL Calcium 8.6 (8.5-10.1) mg/dL Total Bilirubin 0.3 (0.2-1.0) mg/dL AST 38 H (15-37) U/L ALT 43 (14-59) U/L Alkaline Phosphatase 92 (46-116) U/L Troponin I < 0.017 (0.00-0.056) ng/mL Total Protein 6.7 (6.4-8.2) g/dl Albumin 2.9 L (3.4-5.0) g/dl Globulin 3.8 gm/dL Albumin/Globulin Ratio 0.8 L (1-2) Meds: Medications Discontinued Medications Generic Name Dose Route Start Last Admin Trade Name Freq PRN Reason Stop Dose Admin Enoxaparin Sodium 160 mg 08/13/17 19:13 08/13/17 19:25 Lovenox SUBCUT 08/13/17 19:14 160 mg ONETIME ONE Administration Sodium Chloride 1,000 mls @ 250 mls/hr 08/13/17 15:38 08/13/17 15:59 Normal Saline IV 08/13/17 19:37 250 mls/hr ONETIME ONE Administration Iopamidol 50 ml 08/13/17 16:47 08/13/17 17:10 Isovue-370 (76%) IVPUSH 08/13/17 16:48 50 ml ONETIME ONE Administration Iopamidol 100 ml 08/13/17 16:47 08/13/17 17:10 Isovue-370 (76%) IVPUSH 08/13/17 16:48 50 ml ONETIME ONE Administration Sodium Chloride 10 ml 08/13/17 16:47 08/13/17 17:10 Saline Flush FLUSH 10 ml ONETIME PRN Administration IV FLUSH - Radiology Interpretation Free Text/Narrative:: Venous doppler of bilateral lower extremities is negative CT Results Date: 08/13/17 (Impression: 1. small pulmonary embolism within a segmental branch within the left midlung. No other findings of pulmonary embolism are seen. 2. Minimal scarring or atelectasis within the left base. 3. Heart is slightly enlarged which is felt to be residual from recent . 4. No additional finding is seen on CT study of the chest. ) - Re-Assessments/Exams Free Text/Narrative Re-Assessment/Exam: 08/13/17 18:54 Reviewed negative venous doppler of lower extremity. Reviewed positive findings of small pulmonary emboli in left midlung. Also placed call to Dr. Foy, WE[employer] APPRENTICE for update. Recommendations for treatment as well. Patient has follow up with Dr. Foy this on 08/16/17. Will also have patient schedule/establish care with PCP and for further follow up for PE. Patient will be given lovenox teaching prior to DC by nursing. Departure - Departure Time of Disposition: 18:59 Disposition: Home, Self-Care 01 Condition: Good Clinical Impression: Pulmonary embolism Qualifiers: Pulmonary embolism type: other Chronicity: acute - Discharge Information Instructions: Enoxaparin injection, Pulmonary Embolism, How and Where to Give Subcutaneous Enoxaparin Injections Referrals: Axel Foy MD [Primary Care Provider] - Forms: ED Department Discharge Additional Instructions: Push fluids Follow up with Dr. Foy as scheduled on 08/16/17 Follow up/establish care with Primary Care, Dr. Fernández as soon as possible or on 08/16/17 Lovenox instructions to be given to the patient upon discharge. Lovenox injection once daily. This will cause bruising at the site, rotate sites daily. Caution for sensitive gums, mouthwash, soft toothbrush Vaginal bleeding may increase, if excessive please return to ER or clinic for evaluation If lightheaded, dizzy or almost passing out return to ER or clinic Keep bowels soft, use stool softners/apple juice/prunes if needed--return to ER or clinic if rectal bleeding noted -stool softners safe in include colace, milk of magnesia - My Orders Last 24 Hours: My Active Orders 08/13/17 15:37 EKG Documentation Completion [RC] STAT - Assessment/Plan Last 24 Hours: My Active Orders 08/13/17 15:37 EKG Documentation Completion [RC] STAT
[2017-08-13] MEDS ORDERED: Sodium Chloride 0.9% 1,000 ML IV ONE (15:38)
--- NOTE | 2017-08-13 16:27 | US ---
Bilateral lower extremity deep venous ultrasound: Duplex and color flow imaging was obtained of the right and left common femoral, superficial femoral, proximal greater saphenous, popliteal, posterior tibial and peroneal veins. Findings: Right posterior tibial vein not optimally seen due to its small size. There is felt to be Doppler flow within this vein. Other veins show normal phasic flow, augmentation and compression. Impression: 1. No evidence of deep venous thrombosis within the right or left lower extremities. Diagnostic code #1
[2017-08-13] MEDS ORDERED: Iopamidol 755 MG/ML 50 ML Bottle IVPUSH ONE (16:47)
[2017-08-13] MEDS ORDERED: Sodium Chloride 0.9% 10 ML Syringe FLUSH PRN (16:47)
[2017-08-13] MEDS ORDERED: Iopamidol 755 Mg/ML 100 ML Bottle IVPUSH ONE (16:47)
--- NOTE | 2017-08-13 17:24 | CT ---
CT chest Technique: Multiple axial sections through the chest were obtained. Intravenous contrast was utilized. Study has been performed as a pulmonary angiogram protocol. Findings: Small filling defect is identified within a segmental branch within the left midlung compatible with pulmonary embolism. No other findings of pulmonary embolism are seen. Mediastinum and hilar regions show no adenopathy or mass. Heart size is slightly enlarged likely residual from recent . Small portion of the visualized upper abdominal structures are normal. Lungs shows minimal scarring or atelectasis within the left base. Lungs otherwise are clear. No pleural effusions are seen. Impression: 1. Small pulmonary embolism within a segmental branch within the left midlung. No other findings of pulmonary embolism are seen. 2. Minimal scarring or atelectasis within the left base. 3. Heart is slightly enlarged which is felt to be residual from recent . 4. No additional finding is seen on CT study of the chest. Diagnostic code #9
[2017-08-13] MEDS ORDERED: Enoxaparin 150 MG/1 ML Syringe SUBCUT ONE (19:13)
== END 2017-08-13 19:30 | disposition home or self-care (01) ==
LOC: JD.ED 14:33
DX: I26.99 Other pulmonary embolism without acute cor pulmonale (principal); K21.9 Gastro-esophageal reflux disease without esophagitis; Z87.891 Personal history of nicotine dependence
CPT/HCPCS: 36415; 71275; 80053; 84484; 85025; 93005; 93970; 96360; 96361; 96372; 99285; J1650; J7040; J7050; Q9967

== ENCOUNTER 2017-11-01 19:15 | Emergency (ER) | payer OTHER ==
[2017-11-01] MEDS ORDERED: Sodium Chloride 0.9% 10 ML Syringe FLUSH PRN (19:27)
--- NOTE | 2017-11-01 19:51 | EDM.PDOC ---
ED HPI GENERAL MEDICAL PROBLEM - General Chief Complaint: Cardiovascular Problem Stated Complaint: CHEST PAIN SOB Time Seen by Provider: 11/01/17 19:23 Source of Information: Reports: Patient History Limitations: Reports: No Limitations - History of Present Illness INITIAL COMMENTS - FREE TEXT/NARRATIVE: The patient presents with left sided chest pain. The pain started today. She has a history of a PE. She was diagnosed 2 weeks after giving to her child and he is 12 weeks now. She is currently on coumadin. Her INR has always been good. She has some shortness of breath with the chest pain. She has no fever, chills, cough, abdominal pain, nausea or vomiting. She as no edema or pain in her legs. Onset: Sudden Duration: Hour(s): Location: Reports: Chest Quality: Reports: Sharp Severity: Moderate Improves with: Reports: None Worsens with: Reports: None Associated Symptoms: Reports: Chest Pain, Shortness of Breath. Denies: Cough, Fever/Chills, Headaches, Nausea/Vomiting Left Chest Pain Score (Numeric/FACES): 6 - Related Data Allergies Allergy/AdvReac Type Severity Reaction Status Date / Time No Known Allergies Allergy Verified 08/13/17 14:58 Home Meds: Home Meds Acetaminophen [Tylenol] 650 mg PO Q6H PRN 08/13/17 [History] Elderberry Fruit/Honey [Little Remedies Cough-Immune] 1 drop PO DAILY 11/01/17 [ History] Warfarin [Coumadin] 5 mg PO DAILY 11/01/17 [History] Past Medical History HEENT History: Reports: Impaired Vision Other HEENT History: Wears glasses Respiratory History: Reports: PE Gastrointestinal History: Reports: GERD 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 , 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, - Past Surgical History HEENT Surgical History: Reports: Tonsillectomy Social & Family History - Family History Family Medical History: Noncontributory - Tobacco Use Smoking Status *Q: Never Smoker - Caffeine Use Caffeine Use: Reports: None - Recreational Drug Use Recreational Drug Use: No ED ROS GENERAL - Review of Systems Review Of Systems: See Below Constitutional: Reports: No Symptoms HEENT: Reports: No Symptoms Respiratory: Reports: Shortness of Breath Cardiovascular: Reports: Chest Pain Endocrine: Reports: No Symptoms GI/Abdominal: Reports: No Symptoms : Reports: No Symptoms Musculoskeletal: Reports: No Symptoms ED EXAM, GENERAL - Physical Exam Exam: See Below Exam Limited By: No Limitations General Appearance: Alert, No Apparent Distress Ears: Normal External Exam Nose: Normal Inspection Head: Atraumatic, Normocephalic Neck: Normal Inspection Respiratory/Chest: No Respiratory Distress, Lungs Clear, Normal Breath Sounds Cardiovascular: Regular Rate, Rhythm, No Edema, No Murmur GI/Abdominal: Soft, Non-Tender, No Organomegaly, No Mass Back Exam: Normal Inspection Extremities: Normal Inspection EKG INTERPRETATION EKG Date: 11/01/17 Time: 19:27 Rhythm: NSR Rate (Beats/Min): 71 [place]: Normal P-Wave: Present QRS: Normal ST-T: Other (Flattened T waves lateral leads) QT: Normal Course - Vital Signs Last Recorded V/S: Last Vital Signs Temp 98.9 F 11/01/17 19:23 Pulse 75 11/01/17 19:23 Resp 21 H 11/01/17 19:23 BP 130/68 11/01/17 19:23 Pulse Ox 97 11/01/17 19:23 - Orders/Labs/Meds Orders: Active Orders 24 hr Category Date Time Status Cardiac Monitoring [RC] . DIRECTED Care 11/01/17 19:27 Active EKG Documentation Completion [RC] STAT Care 11/01/17 19:31 Active Oxygen Therapy [RC] PRN Care 11/01/17 19:27 Active Peripheral IV Care [RC] . DIRECTED Care 11/01/17 19:31 Active Sodium Chloride 0.9% [Saline Flush] Med 11/01/17 19:27 Active 10 ml FLUSH ASDIRECTED PRN Peripheral IV Insertion Adult [OM.PC] Stat Oth 11/01/17 19:27 Ordered Medication Orders Sodium Chloride (Saline Flush) 10 ml FLUSH ASDIRECTED PRN PRN Reason: Keep Vein Open Last Admin: 11/01/17 19:44 Dose: 10 ml Labs: Laboratory Tests 11/01/17 11/01/17 11/01/17 Range/Units 19:40 19:40 19:40 WBC 9.39 (3.98-10.04) K/mm3 RBC 4.64 (3.98-5.22) M/mm3 Hgb 12.9 (11.2-15.7) gm/L Hct 39.2 (34.1-44.9) % MCV 84.5 (79.4-94.8) fl MCH 27.8 (25.6-32.2) pg MCHC 32.9 (32.2-35.5) g/dl RDW Std Deviation 45.8 (36.4-46.3) fL Plt Count 330 (182-369) K/mm3 MPV 9.5 (9.4-12.3) fl Neut % (Auto) 59.4 (34.0-71.1) % Lymph % (Auto) 29.7 (19.3-51.7) % [place] % (Auto) 6.8 (4.7-12.5) % Eos % (Auto) 3.5 (0.7-5.8) Baso % (Auto) 0.3 (0.1-1.2) % Neut # (Auto) 5.57 (1.56-6.13) K/mm3 Lymph # (Auto) 2.79 (1.18-3.74) K/mm3 [place] # (Auto) 0.64 H (0.24-0.36) K/mm3 Eos # (Auto) 0.33 (0.04-0.36) K/mm3 Baso # (Auto) 0.03 (0.01-0.08) K/mm3 PT 29.8 H (9.5-12.1) SECONDS INR 2.79 Sodium 140 (136-145) mEq/L Potassium 3.7 (3.5-5.1) mEq/L Chloride 104 (98-107) mEq/L Carbon Dioxide 27 (21-32) mEq/L Anion Gap 12.7 (5-15) BUN 15 (7-18) mg/dL Creatinine 0.8 (0.55-1.02) mg/dL Est Cr Clr Drug Dosing 77.33 mL/min Estimated GFR (MDRD) > 60 (>60) mL/min BUN/Creatinine Ratio 18.8 H (14-18) Glucose 131 H (74-106) mg/dL Calcium 8.8 (8.5-10.1) mg/dL Total Bilirubin 0.3 (0.2-1.0) mg/dL AST 23 (15-37) U/L ALT 21 (14-59) U/L Alkaline Phosphatase 133 H (46-116) U/L Troponin I < 0.017 (0.00-0.056) ng/mL Total Protein 7.3 (6.4-8.2) g/dl Albumin 3.6 (3.4-5.0) g/dl Globulin 3.7 gm/dL Albumin/Globulin Ratio 1.0 (1-2) Meds: Medications Generic Name Dose Route Start Last Admin Trade Name Fresrinivas PRN Reason Stop Dose Admin Sodium Chloride 10 ml 11/01/17 19:27 11/01/17 19:44 Saline Flush FLUSH 10 ml ASDIRECTED PRN Administration Keep Vein Open Discontinued Medications Generic Name Dose Route Start Last Admin Trade Name Freq PRN Reason Stop Dose Admin Iopamidol 100 ml 11/01/17 20:06 11/01/17 20:24 Isovue-370 (76%) IVPUSH 11/01/17 20:07 100 ml ONETIME ONE Administration - Re-Assessments/Exams Free Text/Narrative Re-Assessment/Exam: 11/01/17 19:53 I ordered an IV saline lock, EKG, labs and a CT angio of her chest. Her EKG shows a NSR with no acute changes. 11/01/17 20:56 Her CBC looks good. Her glucose is 131. Her alk phos was elevated at 133. Her troponin is negative. Her CT shows a small PE in the segmental branch of the left lower lung. Three months ago she had a PE in the middle lobe. It appears she has a new one. Her INR is therapeutic at 2.79. There is no further treatment but she may need further testing in the clinic for protein C & S deficiency and factor V ledein. I will have her follow up with Dr Fernández. Departure - Departure Time of Disposition: 21:00 Disposition: Home, Self-Care 01 Condition: Good Clinical Impression: Pulmonary embolism Qualifiers: Pulmonary embolism type: other Chronicity: acute Acute cor pulmonale presence: without acute cor pulmonale Qualified Code(s): I26.99 - Other pulmonary embolism without acute cor pulmonale Referrals: Jo Fernández MD [Primary Care Provider] - 1 Week Forms: ED Department Discharge Additional Instructions: Keep taking your medication as prescribed. Drink plenty of fluids and keep active like you are. Follow up with Dr Fernández and talk about possibly getting further testing. Please return if you are worse. - My Orders Last 24 Hours: My Active Orders 11/01/17 19:27 Cardiac Monitoring [RC] . DIRECTED Oxygen Therapy [RC] PRN Sodium Chloride 0.9% [Saline Flush] 10 ml FLUSH ASDIRECTED PRN Peripheral IV Insertion Adult [OM.PC] Stat 11/01/17 19:31 EKG Documentation Completion [RC] STAT Peripheral IV Care [RC] . DIRECTED - Assessment/Plan Last 24 Hours: My Active Orders 11/01/17 19:27 Cardiac Monitoring [RC] . DIRECTED Oxygen Therapy [RC] PRN Sodium Chloride 0.9% [Saline Flush] 10 ml FLUSH ASDIRECTED PRN Peripheral IV Insertion Adult [OM.PC] Stat 11/01/17 19:31 EKG Documentation Completion [RC] STAT Peripheral IV Care [RC] . DIRECTED
[2017-11-01] MEDS ORDERED: Iopamidol 755 Mg/ML 100 ML Bottle IVPUSH ONE (20:06)
--- NOTE | 2017-11-01 20:43 | CT ---
CT chest Technique: Multiple axial sections were obtained from above the lung apices inferiorly through the lung bases. Intravenous contrast was utilized. Study has been performed as a pulmonary angiogram protocol. Findings: Segmental pulmonary embolism is seen within a branch of the left lower lung pulmonary artery. No other pulmonary emboli are appreciated. Extremely minimal left-sided pleural effusion is seen. Visualized upper abdominal structures appear within normal limits. No pericardial thickening is seen. No evidence of right ventricular dysfunction. Mediastinum and hilar regions appear within normal limits. No axillary adenopathy is seen. Minimal atelectasis is seen within the left base. Lungs otherwise are clear. Impression: 1. Findings compatible with pulmonary embolism within a segmental branch of the left lower lung pulmonary artery. 2. Very small left-sided pleural effusion. 3. Minimal left basilar atelectasis. Diagnostic code #5
== END 2017-11-01 21:07 | disposition home or self-care (01) ==
LOC: JD.ED 19:15
DX: I26.99 Other pulmonary embolism without acute cor pulmonale (principal); Z79.01 Long term (current) use of anticoagulants
CPT/HCPCS: 36415; 71275; 80053; 84484; 85025; 85610; 93005; 99285; J7050; Q9967; 93010; 99284-25

== ENCOUNTER 2018-04-15 21:46 | Emergency (ER) | payer OTHER ==
--- NOTE | 2018-04-15 22:19 | EDM.PDOC ---
ED HPI GENERAL MEDICAL PROBLEM - General Chief Complaint: ENT Problem Stated Complaint: NOSE BLEED ON BLOOD THINNERS Time Seen by Provider: 04/15/18 22:19 - History of Present Illness INITIAL COMMENTS - FREE TEXT/NARRATIVE: 42-year-old female presents emergency room with nosebleed. This morning the patient was head butted by her child and she had a nosebleed Sunday. And after couple of hours. However this evening started up again and she cannot get it stopped. The patient is on Lovenox for recurrent PEs and is scheduled to be on Lovenox at least through August. She has not had any dizziness blood pressure has not been a problem for her. 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 , 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, - Past Surgical History HEENT Surgical History: Reports: Tonsillectomy Social & Family History - Family History Family Medical History: Noncontributory - Caffeine Use Caffeine Use: Reports: None - Sexual History Sexual History: Reports: Sexually Active, Single Partner - Living Situation & Occupation Living situation: Reports: ED ROS ENT - Review of Systems Review Of Systems: See Below Constitutional: Reports: No Symptoms HEENT: Reports: Nosebleed Respiratory: Reports: No Symptoms Cardiovascular: Reports: No Symptoms GI/Abdominal: Reports: No Symptoms ED EXAM, ENT - Physical Exam Exam: See Below Exam Limited By: No Limitations General Appearance: Alert, No Apparent Distress Eye Exam: Bilateral Eye: Normal Inspection Ears: Normal External Exam, Normal Canal, Normal TMs Nose: Other (Active bleeding to left naris) Mouth/Throat: Normal Inspection, Normal Gums, Normal Lips, Normal Oropharynx, Other Head: Atraumatic (Small amount of blood on the back of the throat), Normocephalic Neck: Normal Inspection, Supple, Non-Tender Respiratory/Chest: No Respiratory Distress, Lungs Clear, Normal Breath Sounds Cardiovascular: No Edema, No Murmur, JVD ED ENT PROCEDURES - Epistaxis Procedure Recent anticoagulants/antiplatlets: Yes Uncontrolled HTN: No Recent septal/nasal surgery: No Site of bleeding: Left Nare Clearing of clots: Patient Blew Nose, Suction Chemical cautery: Other (Attempted silver nitrate not get the bleeding to slow down enough to visualize were was coming from) Anterior Packing: Inflatable Nasal Tampon, Other (Rapid Rhino 5.0) Complications: No Course - Vital Signs Last Recorded V/S: Last Vital Signs Temp 36.3 C 04/15/18 22:15 Pulse 80 04/15/18 22:15 Resp 18 04/15/18 22:15 BP 135/75 04/15/18 22:15 Pulse Ox 97 04/15/18 22:15 - Orders/Labs/Meds Labs: Laboratory Tests 04/15/18 Range/Units 23:03 WBC 10.91 H (3.98-10.04) K/mm3 RBC 4.52 (3.98-5.22) M/mm3 Hgb 12.8 (11.2-15.7) gm/L Hct 39.6 (34.1-44.9) % MCV 87.6 (79.4-94.8) fl MCH 28.3 (25.6-32.2) pg MCHC 32.3 (32.2-35.5) g/dl RDW Std Deviation 43.7 (36.4-46.3) fL Plt Count 370 H (182-369) K/mm3 MPV 9.0 L (9.4-12.3) fl Meds: Medications Discontinued Medications Generic Name Dose Route Start Last Admin Trade Name Freq PRN Reason Stop Dose Admin Acetaminophen 650 mg 04/15/18 23:10 04/15/18 23:17 Tylenol PO 04/15/18 23:11 650 mg NOW ONE Administration - Radiology Interpretation Free Text/Narrative:: Attempted to visualize the bleeding site this was difficult as it kept bleeding despite suction [id number] try pressure this did not help. A 5.0 rapid Rhino was placed with immediate control of bleeding I did back off the pressure from the rapid Rhino several times to facilitate a more comfortable feel for the patient without triggering more bleeding. Patient tolerated this without difficulty Departure - Departure Time of Disposition: 00:47 Disposition: Home, Self-Care 01 Clinical Impression: Epistaxis, Anticoagulation therapy continued upon discharge - Discharge Information Referrals: Jo Fernández MD [Primary Care Provider] - Forms: ED Department Discharge Additional Instructions: Return to the emergency room with any questions problems worsening symptoms. Follow-up with her regular doctor on Sunday to have this catheter removed from your nose
[2018-04-15] MEDS ORDERED: Acetaminophen 325 MG Tab PO ONE (23:10)
== END 2018-04-16 01:00 | disposition home or self-care (01) ==
LOC: JD.ED 21:46
DX: R04.0 Epistaxis (principal); Z79.01 Long term (current) use of anticoagulants
CPT/HCPCS: 30903; 36415; 85027; 99283; A9270

== ENCOUNTER 2018-04-16 08:20 | Emergency (ER) | payer OTHER ==
--- NOTE | 2018-04-16 09:08 | EDM.PDOC ---
<Duran Garber - Last Filed: 04/16/18 10:16> ED HPI GENERAL MEDICAL PROBLEM - General Chief Complaint: Headache Stated Complaint: HERE FOR NOSE BLEED LAST NIGHT MIGRAINE TODAY Time Seen by Provider: 04/16/18 08:55 - Related Data Allergies Allergy/AdvReac Type Severity Reaction Status Date / Time No Known Allergies Allergy Verified 04/16/18 08:31 Home Meds: Home Meds Acetaminophen [Tylenol] 650 mg PO Q6H PRN 08/13/17 [History] Enoxaparin [Lovenox] 150 mg SUBCUT DAILY 12/17/17 [History] Sertraline [Zoloft] 12.5 mg PO DAILY 12/17/17 [History] ED ROS GENERAL - Review of Systems Constitutional: Reports: No Symptoms. Denies: Fever, Chills, Malaise, Weakness , Fatigue, Night Sweats HEENT: Reports: Ear Pain (mild), Eye Pain (moderate and constant . Not ilicit with eye movment), Glasses (glasses), Hearing Loss (Mild hearing impariment of the left ear that has steadily prgressed since last night after having nasal rocket placed), Nosebleed (See HPI). Denies: Ear Discharge, Throat Pain, Throat Swelling, Vertigo, Vision Change Respiratory: Reports: No Symptoms. Denies: Shortness of Breath, Wheezing, Pleuritic Chest Pain, Cough, Sputum, Hemoptysis Cardiovascular: Reports: No Symptoms. Denies: Chest Pain, Claudication, Dyspnea on Exertion, Edema, Lightheadedness, Orthopnea, Palpitations, Syncope Endocrine: Reports: No Symptoms GI/Abdominal: Reports: No Symptoms. Denies: Abdominal Pain, Nausea, Vomiting : Reports: No Symptoms Musculoskeletal: Reports: No Symptoms. Denies: Neck Pain, Shoulder Pain, Leg Pain, Joint Pain Skin: Reports: No Symptoms. Denies: Cyanosis, Pallor, Diaphoresis, Dryness Psychiatric: Reports: No Symptoms Hematologic/Lymphatic: Reports: Other (H/o Pulmonary embolism approximately 4 months ago) Immunologic: Reports: No Symptoms - Physical Exam Exam Limited By: No Limitations General Appearance: Alert, WD/WN, No Apparent Distress, Obese Eye Exam: Bilateral Eye: EOMI, Normal Inspection, PERRL Ears: Normal External Exam, Normal Canal, Other (Left TM cloudy with scars present with poor visibilat of landmarks. Right TM Normal) Nose: Normal Mucosa, Other (Left nare with nasal rocket in place. Right nare with 50% obstruction ). No: Normal Inspection (Petechial like hemorrages of septal wall of the left nare), Nasal Deformity, Nasal Swelling, Nasal Drainage Throat/Mouth: Normal Inspection, Normal Teeth, Normal Gums, Normal Oropharynx ( No blood visualized in posterior oropharynx), Normal Voice, No Airway Compromise Head Exam: Atraumatic, Normocephalic, Sinus Tenderness (Left maxillary tenderness). No: Scalp Tenderness, Facial Swelling Neck: Normal Inspection, Supple, Non-Tender, Full Range of Motion. No: Lymphadenopathy (L), Lymphadenopathy (R), Tender Lateral Respiratory/Chest: No Respiratory Distress, Lungs Clear, Normal Breath Sounds, No Accessory Muscle Use Cardiovascular: Normal Peripheral Pulses, Regular Rate, Rhythm, No Edema, No Gallop, No Murmur, No Rub GI/Abdominal: Normal Bowel Sounds, Soft, Non-Tender (Female) Exam: Deferred Rectal (Female) Exam: Deferred Neuro Exam (Abbreviated): Alert, Oriented, CN II-XII Intact, Normal Cognition, Normal Reflexes, No Motor/Sensory Deficits DTR: 2+: Bicep (R), Bicep (L), Patella (R), Patella (L) Back Exam: Normal Inspection, Full Range of Motion Extremities: Normal Inspection, Normal Range of Motion, No Pedal Edema, Normal Capillary Refill Psychiatric: Normal Affect, Normal Mood Skin Exam: Warm, Dry, Intact, Normal Color, No Rash Course - Vital Signs Last Recorded V/S: Last Vital Signs Temp 36.5 C 04/16/18 08:29 Pulse 90 04/16/18 08:29 Resp 16 04/16/18 08:29 BP 150/70 H 04/16/18 08:29 Pulse Ox 96 04/16/18 08:29 Departure - Departure Disposition: Home, Self-Care 01 Clinical Impression: Neuralgic facial pain - Discharge Information Referrals: Jo Fernández MD [Primary Care Provider] - Forms: ED Department Discharge Additional Instructions: Evaluation the emergency room today in regards to persistent left hemifacial pain that started after having a Rhino Rocket placed last night for left-sided nosebleed. Bleeding was very heavy last night due to the fact that you are on Lovenox. The cause of most nosebleeds however is dry air just that you bleeding more of course because you're on a blood thinner. Unfortunately the Rhino Rocket caused tremendous amount of pressure on nerve in the back of the nose and throat. Causing referred pain anterior left kerry-face particularly around her eye and left temporal scalp. Deflating the balloon did not relieve your pain. Therefore the Rhino Rocket was removed. The nose is been packed with Vaseline impregnated Tubegauz and is to remain in place for the next 48 hours. You may rate may remove it herself at home in 2 days time. After this I would like you to place Polysporin ointment into each side of the nose with the aid of a Q-tip at bedtime for one week. After this I would like you to use twice weekly usually Sunday and Sunday nights per couple of weeks try and prevent further nosebleeds. Of course return to the ED if further bleeding occurs. <Stewart Paz - Last Filed: 04/16/18 21:06> ED HPI GENERAL MEDICAL PROBLEM - General Source of Information: Reports: Patient, Family History Limitations: Reports: No Limitations - History of Present Illness INITIAL COMMENTS - FREE TEXT/NARRATIVE: 42-year-old female presents to the ED with severe left hemifacial pain particularly up underneath her left eye and temporal scalp. Pain radiates somewhat to her left ear as well. Patient was seen through the ED last night with a significant left-sided epistaxis. She required a Rhino Rocket pack 7.5 cm. Said pain since the Rhino Rocket was placed. Scars the pain is constant throbbing and almost enough to make her nauseated. She took Motrin at home with very little relief. Of note the patient is on Lovenox injections once daily. Apparently had a PE 4 months ago. Was initially treated with Coumadin. He is currently on Lovenox once daily because she is breast-feeding. Onset: Sudden Onset Date: 04/16/18 Onset Time: 23:00 Duration: Hour(s):, Constant Location: Reports: Face (Diffuse left kerry-facial pain starting at the year her nose and up underneath her left eye and temporal scalp towards her left ear. Pain is constant and described as throbbing and pressure.) Quality: Reports: Ache, Throbbing Severity: Moderate (8-9 out of 10.) Improves with: Reports: None Worsens with: Reports: None Context: Reports: Other (Spontaneous left-sided epistaxis last night requiring placement of a Rhino Rocket to bring the bleeding under control. Said pain and pressure left kerry-face since placement of the Rhino Rocket.). 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 , 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, - Past Surgical History HEENT Surgical History: Reports: Tonsillectomy Social & Family History - Family History Family Medical History: Noncontributory - Tobacco Use Smoking Status *Q: Never Smoker - Caffeine Use Caffeine Use: Reports: None - Recreational Drug Use Recreational Drug Use: No - Sexual History Sexual History: Reports: Sexually Active, Single Partner - Living Situation & Occupation Living situation: Reports: ED ROS GENERAL - Review of Systems Review Of Systems: See Below - Physical Exam Exam: See Below Course - Radiology Interpretation Free Text/Narrative:: 42-year-old female presents to the ED with left hemifacial pain since having a 7.5 cm Rhino Rocket placed in her left nares at 2300 hrs. last evening. Patient developed a nosebleed that would not stop and she is on Lovenox daily and she had a pulmonary and was on 4 months ago. Only breast-feeding therefore is not using Xarelto or Eliquis. Was previously on Coumadin . She has constant pressure on the dorsal pressure on likely glossal palatine nerve causing referred pain to her left kerry-face which is intolerable. I took the air out of the balloon of the Rhino Rocket and deflated it and moved it slightly anterior to see if this would relieve her pain. Review her in 10 minutes time - Re-Assessments/Exams Free Text/Narrative Re-Assessment/Exam: 04/16/18 09:05: Patient doesn't feel any better with a Rhino Rocket deflated and still in place. Therefore I will remove it and pack her nose with Vaseline impregnated Tubegauze. Of note [employer] student Matteo Garber -participated in the care of this patient and did some of the charting. I have reviewed his charting and find no deficits or need for corrections. 04/16/18 09:41 Rhino Rocket was removed successfully without exacerbating her nosebleed. On inspection there are several petechial-like hemorrhages from the mid left nasal septum. No active bleeding occurred. I packed the nose with Vaseline impregnated Tubegauz which will remain in place for 48 hours. The patient may remove this on her own in 2 days time. He will of course return to the ED if there is any further nasal bleeding. I've Instructed Her Pl., Polysporin ointment into each side of her nose with the aid of a Q-tip at bedtime after packing is removed for the next week and then to be used Sunday 's and Sunday nights for the next 2 weeks to try and prevent further nosebleeds. Departure - Departure Time of Disposition: 09:42 Condition: Fair - Discharge Information *PRESCRIPTION DRUG MONITORING PROGRAM REVIEWED*: Not Applicable *COPY OF PRESCRIPTION DRUG MONITORING REPORT IN PATIENT ASHISH: Not Applicable
== END 2018-04-16 09:48 | disposition home or self-care (01) ==
LOC: JD.ED 08:20
DX: R51 Headache (principal); K21.9 Gastro-esophageal reflux disease without esophagitis; Z79.899 Other long term (current) drug therapy
CPT/HCPCS: 99282; 99283

== ENCOUNTER 2018-07-14 11:27 | Emergency (ER) | payer OTHER ==
--- NOTE | 2018-07-14 11:42 | EDM.PDOC ---
<Stewart Paz - Last Filed: 07/23/18 07:19> ED HPI GENERAL MEDICAL PROBLEM - General Chief Complaint: Upper Extremity Injury/Pain Stated Complaint: LEFT ARM PAIN,POSS BLOOD CLOT Time Seen by Provider: 07/14/18 12:00 - History of Present Illness INITIAL COMMENTS - FREE TEXT/NARRATIVE: This patient was seen primarily by May Ivey. Documentation to be done by her. Left Upper Arm Pain Score (Numeric/FACES): 5 - Related Data Allergies Allergy/AdvReac Type Severity Reaction Status Date / Time No Known Allergies Allergy Verified 07/14/18 11:41 Home Meds: Home Meds Acetaminophen [Tylenol] 650 mg PO Q6H PRN 08/13/17 [History] Enoxaparin [Lovenox] 150 mg SUBCUT DAILY 12/17/17 [History] Sertraline [Zoloft] 50 mg PO DAILY 12/17/17 [History] Past Medical History HEENT History: Reports: Impaired Vision Other HEENT History: Wears glasses Respiratory History: Reports: PE Gastrointestinal History: Reports: GER[employer] History: Reports: Ectopic , 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, - Past Surgical History HEENT Surgical History: Reports: Tonsillectomy Social & Family History - Family History Family Medical History: Noncontributory - Caffeine Use Caffeine Use: Reports: None - Sexual History Sexual History: Reports: Sexually Active, Single Partner - Living Situation & Occupation Living situation: Reports: Occupation: Unemployed ED EXAM, GENERAL - Physical Exam Exam: See Below Course - Vital Signs Last Recorded V/S: Last Vital Signs Temp 98.6 F 07/14/18 11:36 Pulse 75 07/14/18 11:36 Resp 18 07/14/18 11:36 BP 128/69 07/14/18 11:36 Pulse Ox 95 07/14/18 11:36 - Orders/Labs/Meds Labs: Laboratory Tests 07/14/18 07/14/18 07/14/18 Range/Units 12:30 12:30 12:30 WBC 8.76 (3.98-10.04) K/mm3 RBC 4.60 (3.98-5.22) M/mm3 Hgb 13.1 (11.2-15.7) gm/L Hct 39.8 (34.1-44.9) % MCV 86.5 (79.4-94.8) fl MCH 28.5 (25.6-32.2) pg MCHC 32.9 (32.2-35.5) g/dl RDW Std Deviation 44.0 (36.4-46.3) fL Plt Count 338 (182-369) K/mm3 MPV 9.2 L (9.4-12.3) fl Neutrophils % (Manual) 64 H (40-60) % Band Neutrophils % 1 (0-10) % Lymphocytes % (Manual) 34 (20-40) % Atypical Lymphs % 0 % Monocytes % (Manual) 1 L (2-10) % Eosinophils % (Manual) 0 L (0.7-5.8) % Basophils % (Manual) 0 L (0.1-1.2) Platelet Estimate Adequate RBC Morph Comment Normal PT 10.9 (9.5-12.1) SECONDS INR 1.00 APTT 27 (24-31) SECONDS D-Dimer, Quantitative < 0.19 L (0.19-0.50) mg/L Sodium 141 (136-145) mEq/L Potassium 3.6 (3.5-5.1) mEq/L Chloride 107 (98-107) mEq/L Carbon Dioxide 24 (21-32) mEq/L Anion Gap 13.6 (5-15) BUN 13 (7-18) mg/dL Creatinine 0.6 (0.55-1.02) mg/dL Est Cr Clr Drug Dosing 102.07 mL/min Estimated GFR (MDRD) > 60 (>60) mL/min BUN/Creatinine Ratio 21.7 H (14-18) Glucose 93 (74-106) mg/dL Calcium 8.8 (8.5-10.1) mg/dL Total Bilirubin 0.3 (0.2-1.0) mg/dL AST 13 L (15-37) U/L ALT 26 (14-59) U/L Alkaline Phosphatase 101 (46-116) U/L Troponin I < 0.017 (0.00-0.056) ng/mL Total Protein 7.1 (6.4-8.2) g/dl Albumin 3.7 (3.4-5.0) g/dl Globulin 3.4 gm/dL Albumin/Globulin Ratio 1.1 (1-2) Meds: Medications Discontinued Medications Generic Name Dose Route Start Last Admin Trade Name Leonel PRN Reason Stop Dose Admin Sodium Chloride 10 ml 07/14/18 12:18 07/14/18 12:36 Saline Flush FLUSH 10 ml ASDIRECTED PRN Administration Keep Vein Open Departure - Departure Time of Disposition: 16:45 Disposition: Home, Self-Care 01 Condition: Good Clinical Impression: Neck pain - Discharge Information Referrals: Jo Fernández MD [Primary Care Provider] - Forms: ED Department Discharge Additional Instructions: OTC tylenol or motrin as needed for pain and discomfort. Rest. Follow-up with family [facility] this week of next week. Please return to the ER should your symptoms change or worsen. <ErummelissaMay villatoro - Last Filed: 07/23/18 15:08> ED HPI GENERAL MEDICAL PROBLEM - General Source of Information: Reports: Patient History Limitations: Reports: No Limitations - History of Present Illness INITIAL COMMENTS - FREE TEXT/NARRATIVE: 43-year-old female presents for evaluation and treatment of left arm pain. Patient reports pain to the left arm, left side of her neck, left upper back and left upper chest. She feels that lying down worsens the pain. States that started in the left arm first. She denies any associated nausea, vomiting, lightheadedness or syncope. She reports feeling fatigued. Patient feels that she may have a PE. She states that she's 3 PE blood clots last August. She is currently on Lovenox for these. Patient reports she does not smoke. Reports that she is not on any oral contraceptives. Patient has seen hematology regarding her multiple. He. She is scheduled to see them next August 8h. Primary care provider is Dr. Fernández. Review of Systems - Review of Systems Review Of Systems: See Below Constitutional: Reports: Other (Reports feeling fatigued) Respiratory: Denies: Shortness of Breath, Cough Cardiovascular: Reports: Chest Pain (Left upper anterior chest) GI/Abdominal: Denies: Nausea, Vomiting Musculoskeletal: Reports: Neck Pain (Left lateral neck), Arm Pain (Left arm), Back Pain (Left superior back) Neurological: Denies: Numbness, Tingling ED EXAM, GENERAL - Physical Exam Exam: See Below Exam Limited By: No Limitations General Appearance: Alert, WD/WN, No Apparent Distress, Obese Eye Exam: Bilateral Eye: Normal Inspection Throat/Mouth: Normal Inspection, Normal Voice, No Airway Compromise Neck: Normal Inspection, Supple Respiratory/Chest: No Respiratory Distress, Lungs Clear, Normal Breath Sounds Cardiovascular: Normal Peripheral Pulses, Regular Rate, Rhythm, No Murmur Back Exam: Normal Inspection, Paraspinal Tenderness (Left superior thoracic spine). No: Vertebral Tenderness Extremities: Normal Inspection (Left arm shows no swelling or erythema) Neurological: Alert, Oriented, Normal Cognition Psychiatric: Normal Affect, Normal Mood Skin Exam: Warm, Dry, Normal Color EKG INTERPRETATION EKG Date: 07/14/18 Time: 14:26 Rhythm: NSR Rate (Beats/Min): 64 [place]: Normal P-Wave: Present QRS: Normal ST-T: Normal QT: Normal EKG Interpretation Comments: NSR at 64 bpm. No changes from 2017 ekg. Course - Radiology Interpretation Free Text/Narrative:: Chest: 2 views of the chest were obtained. Comparison: Prior chest x-ray of 12/17/17. Heart size is normal. Tortuous thoracic aorta is seen. Lungs are clear. Bony structures are unremarkable. Impression: 1. Nothing acute is seen on 2 view chest x-ray. - Re-Assessments/Exams Free Text/Narrative Re-Assessment/Exam: 07/14/18 16:44 I reviewed the labs, EKG and imaging with the patient. Her d-dimer is undetectable less than 0.19. [address] pulmonary exam is indicated at this time. I do feel this is more likely muscular skeletal causing her pain. I think she should follow up with her primary care provider. Will discharge home today. Discharge instructions as documented. Departure - Departure Condition: Good - Discharge Information *PRESCRIPTION DRUG MONITORING PROGRAM REVIEWED*: No *COPY OF PRESCRIPTION DRUG MONITORING REPORT IN PATIENT ASHISH: No
[2018-07-14] MEDS ORDERED: Sodium Chloride 0.9% 10 ML Syringe FLUSH PRN (12:18)
--- NOTE | 2018-07-14 19:34 | CR ---
Chest: Two views of the chest were obtained. Comparison: Prior chest x-ray of 12/17/17. Heart size is normal. Tortuous thoracic aorta is seen. Lungs are clear. Bony structures are unremarkable. Impression: 1. Nothing acute is seen on two-view chest x-ray. Diagnostic code #1
== END 2018-07-14 15:50 | disposition home or self-care (01) ==
LOC: JD.ED 11:27
DX: M54.2 Cervicalgia (principal); K21.9 Gastro-esophageal reflux disease without esophagitis; Z79.899 Other long term (current) drug therapy
CPT/HCPCS: 36415; 71046; 71046-26; 80053; 84484; 85007; 85027; 85379; 85610; 85730; 93005; 93010; 99283; 99284-25